=== PATIENT | male | born 1945 | race Caucasian/White ===

== ENCOUNTER → 2020-05-01 11:15 | Outpatient (BNVA) | payer MEDICARE, OTHER, SELFPAY | PROVIDERS: Family Provider Internal Medicine; PCP Internal Medicine; Visit Provider Internal Medicine Cardiovascular Disease | DX: I11.0 Hypertensive heart disease with heart failure (principal); I48.0 Paroxysmal atrial fibrillation; I50.33 Acute on chronic diastolic (congestive) heart failure; Z95.2 Presence of prosthetic heart valve; Z95.0 Presence of cardiac pacemaker; I42.0 Dilated cardiomyopathy; I72.2 Aneurysm of renal artery | CPT/HCPCS: 80048; 83880; 84443 ==

== ENCOUNTER → 2020-05-05 13:30 | Outpatient (BNVA) | payer MEDICARE, OTHER, SELFPAY | PROVIDERS: Family Provider Internal Medicine; PCP Internal Medicine; Visit Provider Internal Medicine Cardiovascular Disease | DX: I48.0 Paroxysmal atrial fibrillation (principal); R06.02 Shortness of breath; I11.0 Hypertensive heart disease with heart failure; I50.43 Acute on chronic combined systolic (congestive) and diastolic (congestive) heart failure; Z95.2 Presence of prosthetic heart valve; Z95.0 Presence of cardiac pacemaker; I42.0 Dilated cardiomyopathy; I72.2 Aneurysm of renal artery | CPT/HCPCS: 80048; 83880 ==

== ENCOUNTER 2020-06-16 12:34 | Outpatient (CLI) | payer OTHER, MEDICARE, SELFPAY ==
[2020-06-16 13:37] LABS: Anion Gap 14.1 (5-19); Blood Urea Nitrogen 13 mg/dL (8-23); Calcium 8.9 mg/dL (8.5-10.5); Carbon Dioxide 25 mmol/L (22-29); Chloride 104 mmol/L (98-107); Glucose 120 mg/dL (65-115); NT Pro B Type Natriuretic Pept 2310 pg/mL (0-450); Osmolality Calculated 283 mOsm/kg (285-295); Potassium 5.1 mmol/L (3.5-5.1); Sodium 138 mmol/L (136-145)
== END 2020-06-16 12:35 | disposition home or self-care (01) ==
PROVIDERS: PCP Internal Medicine; Visit Provider Internal Medicine Cardiovascular Disease
DX: I11.0 Hypertensive heart disease with heart failure (principal); I50.22 Chronic systolic (congestive) heart failure; I42.0 Dilated cardiomyopathy; I48.0 Paroxysmal atrial fibrillation; I72.2 Aneurysm of renal artery; Z95.0 Presence of cardiac pacemaker; Z95.2 Presence of prosthetic heart valve
CPT/HCPCS: 80048; 83880

== ENCOUNTER 2020-09-14 10:25 | Outpatient (CLI) | payer OTHER, SELFPAY ==
--- NOTE | 2020-09-14 10:38 | CT_ITS ---
WS: [id number] CT RIGHT SHOULDER ARTHROGRAM HISTORY: M25.511 - Pain in right shoulder DLP: 1272.42 mGy-cm. All CT scans at [facility] use at least one of these dose optimization techniques: automat ed exposure control; mA and/or kV adjustment per patient size (includes targeted exams where dose is matched to clinical indication); or iterative reconstruction. COMPARISON: None available. There is good distention of the shoulder joint with contrast. Very mild hypertrophic bone and soft ti ssue changes at the AC joint. Moderate high riding humeral head. Moderate amount of contrast extends into the subacromial and subde ltoid bursa. No prior history of shoulder surgery. Contrast is noted extending obliquely along the te ndon of the supraspinatus muscle. Insertion site tear is suspected. Largest amount of fluid is along the anterior supraspinatus where there is a moderate-sized insertion site tear. Mild atrophy of the s upraspinatus muscle. Cannot confirm infraspinatus or subscapularis tendon tears. There is increase fluid along the subscap ularis recess. There is a small amount of fluid along the distal subscapularis tendon. I suspect ther e is an insertion site tear. Moderate narrowing of the glenohumeral joint. Contrast extends into the superior labrum seen on the c oronal images. CT/CT shoulder RT w con [id number] IMPRESSION: 1. Moderate-sized insertion site tear supraspinatus tendon with fluid extendin g interstitial. 2. Mild atrophy of the supraspinatus muscle. 3. Highly suspicious for insertion site tear of the subscapularis tendon witho ut atrophy. 4. High riding RIGHT humeral head. 5. Contrast extends into the subacromial and subdeltoid bursa. 6. Simple tear superior labrum.
--- NOTE | 2020-09-14 10:41 | IR_ITS ---
WS: [id number] RIGHT SHOULDER ARTHROGRAM UNDER FLUOROSCOPY. PRIOR TO CT EVALUATION. HISTORY: RIGHT SHOULDER PAIN COMPARISON: RIGHT shoulder radiograph 08/03/2019 FLUOROSCOPY TIME: .8 minutes. Procedure, risks and complications were explained to the patient. Consent has been obtained. Under fluoroscopic guidance the skin is marked over the medial superior third of the humeral head, cl eansed with ChloraPrep and anesthetized with lidocaine. 22-gauge spinal needle is inserted to the cor brad of the humeral head. Test injection with Omnipaque reveals the needle is appropriately positioned in the joint. Omnipaque 300 is injected under fluoroscopic guidance. Patient tolerated the joint dis tention well. No complications. Patient will proceed to CT evaluation. IR/IR arthrogram shoulderRT [id number] IMPRESSION: Uncomplicated RIGHT shoulder joint injection prior to CT.
[2020-09-14] MEDS: iohexol 300 mg/mL 50 mL Btl INTRA-ARTI (11:45)
== END 2020-09-14 10:26 | disposition home or self-care (01) ==
PROVIDERS: PCP Internal Medicine; Visit Provider Orthopaedic Surgery
DX: M75.101 Unspecified rotator cuff tear or rupture of right shoulder, not specified as traumatic (principal); M62.511 Muscle wasting and atrophy, not elsewhere classified, right shoulder; S43.431A Superior glenoid labrum lesion of right shoulder, initial encounter; X58.XXXA Exposure to other specified factors, initial encounter
CPT/HCPCS: 23350; 73201; 77002

== ENCOUNTER 2020-10-29 12:31 | Outpatient (CLI) | payer OTHER, SELFPAY ==
--- NOTE | 2020-10-29 12:45 | USCV_ITS ---
Eric Miramontes Age: 74 Gender: M : 1945 Exam Date: 10/29/2020 12:55 Ordering Phys: Jonelle Holbrook MD ([email or web address]) Technologist: Hillary Jones Exam Location: [facility] [place] Indication: CHF BP: / HR: 60 Rhythm: Other Technical Quality: Fair MEASUREMENTS (Male / Female) Normal Values 2D ECHO LV Diastolic Diameter PLAX 5.7 cm 4.2 - 5.9 / 3.9 - 5.3 cm LV Systolic Diameter PLAX 4.9 cm LV Chamber Size 6.1 cm IVS Diastolic Thickness 1.1 cm 0.6 - 1.0 / 0.6 - 0.9 cm IVS Systolic Thickness 1.4 cm LVPW Diastolic Thickness 1.2 cm 0.6 - 1.0 / 0.6 - 0.9 cm LVPW Systolic Thickness 1.4 cm RV Chamber Size 4.0 cm LVOT Diameter 2.0 cm LV Ejection Fraction 2D Teich 28.0 % LA Diameter 4.7 cm LA Width 5.9 cm LA Height 7.0 cm RA Width 4.7 cm RA Height 7.5 cm M-MODE LV Diastolic Diameter MM 6.0 cm 4.2 - 5.9 / 3.9 - 5.3 cm LV Systolic Diameter MM 5.0 cm LV Ejection Fraction MM Teich 35.7 % IVS Diastolic Thickness MM 0.9 cm 0.6 - 1.0 / 0.6 - 0.9 cm IVS Systolic Thickness MM 0.9 cm LVPW Diastolic Thickness MM 0.9 cm 0.6 - 1.0 / 0.6 - 0.9 cm LVPW Systolic Thickness MM 1.6 cm Aortic Annulus Diameter 4.5 cm LA Ao Ratio MM 1.0 MV E Point Septal Separation 1.4 cm DOPPLER AV Peak Velocity 194.0 cm/s LVOT Peak Velocity 62.0 cm/s AV Area Cont Eq vti 1.0 cm squared AV Area Cont Eq pk 1.0 cm squared MV E' Velocity 11.0 cm/s TR Peak Velocity 238.7 cm/s TR Peak Gradient 22.8 mmHg TR Mean Velocity 157.7 cm/s TR Mean Gradient 11.3 mmHg TR Velocity Time Integral 52.6 cm Right Atrial Pressure 3.0 mmHg Pulmonary Artery Systolic Pressu 25.8 mmHg FINDINGS Left Ventricle Mildly dilated left ventricular cavity with diminished ejection fraction of 36%. Diffuse hypokinesis of the septum and anteroseptal segments. Severe hypokinesia of the basal inferior wall segment. Somewhat dyskinetic apical septal segment Right Ventricle Normal LV size ejection fraction Right Atrium Moderately increased right atrial size. Pacemaker wire in the right atrium right ventricle Left Atrium Moderately increased left atrial size. Mitral Valve Possible mitral annular ring .moderately thickened mitral valve. Two reregurgitant jets in the mitral valve with a mild to moderate mitral regurgitation Aortic Valve Bioprosthetic valve the aortic position appears to be well seated. Trace of aortic regurgitation Tricuspid Valve Moderate tricuspid valve regurgitation. Estimated pulmonary artery pressure is 26 mmHg normal pulmonary artery peak systolic pressure. Pulmonic Valve No gross abnormalities noted.mild pulmonary valve regurgitation. Pericardium No pericardial effusion. Aorta Normal aortic annulus size. CONCLUSIONS Mildly dilated left ventricular cavity with diminished ejection fraction of 36%. Multiple wall motion abnormalities as mentioned above. Moderate biatrial enlargement Mild to moderate mitral regurgitation with two regurgitant jets. Bioprosthetic valve the aortic position appears to be well seated. Trace of aortic regurgitation. Peak velocity the aortic valve was 1.946 m/s Moderate tricuspid valve regurgitation. Normal pulmonary artery peak systolic pressure There is no pericardial effusion. Compared to the study from 12/25/2017, there may not be a significant change Dr Jonelle Holbrook MD [facility] (Electronically Signed) Final Date: 29 October 2020 19:29 S
== END 2020-10-29 12:32 | disposition home or self-care (01) ==
LOC: RAD 12:33
PROVIDERS: PCP Internal Medicine; Visit Provider Internal Medicine Cardiovascular Disease
DX: I50.22 Chronic systolic (congestive) heart failure (principal); I08.3 Combined rheumatic disorders of mitral, aortic and tricuspid valves; Z95.2 Presence of prosthetic heart valve
CPT/HCPCS: 93306

== ENCOUNTER → 2020-11-07 11:55 | Outpatient (BNVA) | payer MEDICARE, SELFPAY | PROVIDERS: PCP Family Medicine; Visit Provider Internal Medicine Cardiovascular Disease | DX: I48.0 Paroxysmal atrial fibrillation (principal); R06.02 Shortness of breath; I50.33 Acute on chronic diastolic (congestive) heart failure; I50.22 Chronic systolic (congestive) heart failure | CPT/HCPCS: 80048; 83880 ==

== ENCOUNTER → 2021-09-02 12:13 | Outpatient (BNVA) | payer OTHER, SELFPAY | PROVIDERS: PCP Family Medicine; Visit Provider Internal Medicine Cardiovascular Disease | DX: I11.0 Hypertensive heart disease with heart failure (principal); I50.33 Acute on chronic diastolic (congestive) heart failure; R06.02 Shortness of breath; I50.22 Chronic systolic (congestive) heart failure; I48.0 Paroxysmal atrial fibrillation; Z95.2 Presence of prosthetic heart valve; Z95.0 Presence of cardiac pacemaker; Z87.891 Personal history of nicotine dependence; Z13.228 Encounter for screening for other metabolic disorders | CPT/HCPCS: 80048; 83880 ==

== ENCOUNTER → 2022-01-31 10:52 | Outpatient (BNVA) | payer OTHER, SELFPAY | PROVIDERS: PCP Family Medicine; Visit Provider Internal Medicine Cardiovascular Disease | DX: Z45.010 Encounter for checking and testing of cardiac pacemaker pulse generator [battery] (principal) | CPT/HCPCS: 93279 ==

== ENCOUNTER → 2022-03-05 10:56 | Outpatient (BNVA) | payer OTHER, SELFPAY | PROVIDERS: PCP Family Medicine; Visit Provider Internal Medicine Cardiovascular Disease | DX: I11.0 Hypertensive heart disease with heart failure (principal); I50.22 Chronic systolic (congestive) heart failure; I42.0 Dilated cardiomyopathy; I48.0 Paroxysmal atrial fibrillation; Z95.0 Presence of cardiac pacemaker; Z95.2 Presence of prosthetic heart valve | CPT/HCPCS: 80048; 83880; 99214 ==

== ENCOUNTER 2022-03-31 09:57 | Outpatient (CLI) | payer OTHER, SELFPAY ==
[2022-03-31 11:02] LABS: Blood Urea Nitrogen 17 mg/dL (8-23); Calcium 9.2 mg/dL (8.5-10.5); Carbon Dioxide 22 mmol/L (22-29); Chloride 103 mmol/L (98-107); Glucose 113 mg/dL (65-115); NT Pro B Type Natriuretic Pept 1945 pg/mL (0-450); Osmolality Calculated 286 mOsm/kg (285-295); Sodium 137 mmol/L (136-145)
[2022-03-31 11:07] LABS: Anion Gap 16.4 (5-19); Potassium 4.4 mmol/L (3.5-5.1)
== END 2022-03-31 09:58 | disposition home or self-care (01) ==
PROVIDERS: PCP Family Medicine; Visit Provider Internal Medicine Cardiovascular Disease
DX: I50.22 Chronic systolic (congestive) heart failure (principal); I42.0 Dilated cardiomyopathy
CPT/HCPCS: 80048; 83880

== ENCOUNTER 2022-04-28 09:10 | Outpatient (CLI) | payer OTHER, SELFPAY ==
--- NOTE | 2022-04-28 09:30 | USCV_ITS ---
Miramontes Eric Sanchez Age: 76 Gender: M : 1945 Exam Date: 04/28/2022 10:06 Ordering Phys: Jonelle Holbrook MD ([email or web address]) Technologist: Lorrie Gordon [place]am [place] [facility] [place] Indication: AOV replacement BP: 120 / 85 HR: 88 Rhythm: Sinus Technical Quality: Adequate MEASUREMENTS (Male / Female) Normal Values 2D ECHO LV Diastolic Diameter PLAX 5.3 cm 4.2 - 5.9 / 3.9 - 5.3 cm LV Systolic Diameter PLAX 2.7 cm IVS Diastolic Thickness 1.1 cm 0.6 - 1.0 / 0.6 - 0.9 cm IVS Systolic Thickness 1.8 cm LVPW Diastolic Thickness 1.0 cm 0.6 - 1.0 / 0.6 - 0.9 cm LVPW Systolic Thickness 2.1 cm LVOT Diameter 2.0 cm LV Ejection Fraction 2D Teich 80.8 % LV Ejection Fraction MOD 2C 64.1 % LV Ejection Fraction 2C AL 66.0 % LA Diameter 5.1 cm LA Width 5.1 cm LA Height 7.3 cm RA Width 5.1 cm RA Height 7.8 cm IVC Diameter 2.1 cm DOPPLER AV Peak Velocity 193.3 cm/s LVOT Peak Velocity 63.0 cm/s AV Area Cont Eq vti 1.0 cm squared AV Area Cont Eq pk 1.1 cm squared MV Peak Velocity 141.0 cm/s MV Area PHT 3.5 cm squared Mitral E to A Ratio 5.9 MV E' Velocity 65.5 cm/s Mitral E to MV E' Ratio 17.2 Mitral E to LV E' Lateral Ratio 13.9 Mitral E to LV E' Septal Ratio 23.0 TR Peak Velocity 187.5 cm/s TR Peak Gradient 14.1 mmHg Right Atrial Pressure 3.0 mmHg Pulmonary Artery Systolic Pressu 17.1 mmHg PV Peak Velocity 74.0 cm/s RV Acceleration Time 0.1 s FINDINGS Left Ventricle Normal left ventricular size with diminished ejection fraction of around 40%. Diffuse hypokinesis of left ventricle. Echodensity in the LV apex, may suggest organized LV apical thrombus Right Ventricle Catheter/pacemaker wire in the right ventricular cavity. Right Atrium Moderately increased right atrial size. Catheter/pacemaker wire in the right atrial appendage. Left Atrium Moderately increased left atrial size. Mitral Valve Possible mitral annular ring Aortic Valve Prosthetic valve at the the aortic position appears to be well- seated. Peak velocity the aortic valve was 1.97 m/s with a peak gradient of 16 and a mean gradient of 7 mmHg. Tricuspid Valve Mild to moderate TR (tricuspid valve regurgitation). Pulmonic Valve Pulmonic valve not well visualized. Pericardium No pericardial effusion. Aorta Normal aortic annulus size. IVC Normal inferior vena cava. CONCLUSIONS Normal left ventricular size with d normal iminished ejection fraction of around 40%. Diffuse hypokinesis of left ventricle. Echodensity in the LV apex, may suggest organized LV apical thrombus. Moderate biatrial enlargement. Normal RV size and ejection fraction. Pacemaker wire in the right atrium and right ventricle. Prosthetic valve at the the aortic position appears to be well- seated. Peak velocity the aortic valve was 1.97 m/s with a peak gradient of 16 and a mean gradient of 7 mmHg. Mild to moderate TR (tricuspid valve regurgitation). Estimated pulmonary artery peak systolic pressure was 17 mmHg. There is no pericardial effusion. There are no intracardiac masses. Compared to the study from 04/28/2021, there may not be a significant change Dr Jonelle Holbrook MD [facility] (Electronically Signed) Final Date: 30 April 2022 08:59 S
== END 2022-04-28 09:11 | disposition home or self-care (01) ==
LOC: RAD 09:11
PROVIDERS: PCP Family Medicine; Visit Provider Internal Medicine Cardiovascular Disease
DX: I42.0 Dilated cardiomyopathy (principal); R06.00 Dyspnea, unspecified
CPT/HCPCS: 93306

== ENCOUNTER → 2022-05-19 10:03 | Outpatient (BNVA) | payer OTHER, SELFPAY | PROVIDERS: PCP Family Medicine; Visit Provider Surgery | DX: K40.20 Bilateral inguinal hernia, without obstruction or gangrene, not specified as recurrent (principal); K46.9 Unspecified abdominal hernia without obstruction or gangrene; Z79.01 Long term (current) use of anticoagulants | CPT/HCPCS: 99204 ==

== ENCOUNTER 2022-05-26 07:09 | Day surgery (SDC) | payer OTHER, SELFPAY ==
[2022-05-23 10:45] VITALS: BMI 31.0
[2022-05-26] VITALS (12 sets, daily range): BP systolic 98–135; BP diastolic 62–88; PULSE 67–100; RESP 13–20; TEMP 36.1–36.6; O2SAT 93–100
--- NOTE | 2022-05-26 08:14 | P.ANESASSM_ITS ---
Pre-Anesthetic Assessment Height/Weight: Height 1.7 m Weight 89.811 kg Preop Diagnosis: inguinal hernia Operation Date: 05/26/22 09:00 Proposed Procedures p lap poss open bilateral inguinal hernia 37764 2x,K46.9(Bilateral) - Jin Vicente MD Familial anesthetic complications: None Was Beta Magalis taken within 24 hours: Yes Was Clonidine taken within 24 hours: N/A Last intake: > 8 hrs Social No alcohol and No tobacco Exam alert, oriented x 3, clear to auscultation bilaterally and regular rate & rhythm Airway Mallampati: Class III Dentition: full Pulmonary None reported CV/HEM Atrial Fibrillation and Congestive Heart Failure (EF 36% on 11/08) Aortic valve replaced, pacemaker renal artery aneurysm Anesthetic Plan ASA status: 4 Anesthesia: General Risk of > 500 ml blood loss (7ml/kg in children): No Medications/Allergies Home Medications Medication Instructions Recorded Confirmed Last Taken Type albuterol sulfate 90 mcg/actuation 1 inh inhalation QID 01/25/20 05/26/22 05/25/22 History aerosol inhaler (Ventolin HFA) brimonidine 0.1 % eye drops 1 drop ophthalmic (eye) TID 01/25/20 05/26/22 05/26/22 History (Alphagan P) chlorpheniramine maleate 4 mg 4 mg PO DAILY PRN allergies 01/25/20 05/26/22 05/26/22 History tablet cholecalciferol (vitamin D3) 50 1,000 unit PO DAILY 01/25/20 05/26/22 05/26/22 History mcg (2,000 unit) tablet dorzolamide (PF) 2 % (PF) eye drops 1 drop ophthalmic (eye) TID 01/25/20 05/26/22 05/26/22 History finasteride 5 mg tablet 5 mg PO DAILY 01/25/20 05/26/22 05/26/22 History fluticasone 250 mcg-salmeterol 50 1 inh inhalation BID 01/25/20 05/26/22 05/25/22 History mcg/dose blistr powdr for inhalation (Advair Diskus) ketorolac 0.4 % eye drops 1 drop ophthalmic (eye) Q6H 01/25/20 05/26/22 05/26/22 History latanoprost 0.005 % eye drops 1 drop ophthalmic (eye) DAILY 01/25/20 05/26/22 05/26/22 History spironolactone 25 mg tablet 25 mg PO DAILY 01/25/20 05/26/22 05/26/22 History timolol 0.5 % eye drops 1 drop ophthalmic (eye) DAILY 01/25/20 05/26/22 05/26/22 History albuterol sulfate 2.5 mg inhalation TID PRN 09/03/21 05/26/22 05/25/22 History Shortness Of Breath carvedilol 6.25 mg tablet 6.25 mg PO BID 09/03/21 05/26/22 05/26/22 History metoprolol succinate 50 mg 50 mg PO DAILY 09/03/21 05/26/22 05/26/22 History tablet,extended release 24 hr montelukast 10 mg tablet 10 mg PO DAILY 09/03/21 05/26/22 05/26/22 History (Singulair) simvastatin 20 mg tablet 20 mg PO DAILY 09/03/21 05/26/22 Unknown History sildenafil 50 mg tablet 50 mg PO DAILY PRN Sexual Activity 09/23/21 05/26/22 1 Month Ago History ~04/25/22 furosemide 40 mg tablet 40 mg PO DAILY #90 tabs 03/05/22 05/26/22 05/26/22 Rx sacubitril 97 mg-valsartan 103 mg 1 tab PO BID 90 days #180 tabs 03/10/22 05/26/22 05/26/22 Rx tablet (Entresto) enoxaparin 300 mg/3 mL 100 mg SUBCUT BID 3 days #6 mL 05/19/22 05/26/22 05/25/22 Rx subcutaneous solution (Lovenox) metronidazole 0.75 % lotion 1 applic topical TID 05/19/22 05/26/22 05/25/22 History prednisolone acetate 1 % eye 1 drp ophthalmic (eye) QID 05/19/22 05/26/22 05/26/22 History drops,suspension warfarin 5 mg tablet 5 mg PO .one-half 05/19/22 05/26/22 05/22/22 History Allergies Allergy/AdvReac Type Severity Reaction Status Date / Time tamsulosin [From Flomax] Allergy Unknown unknown Verified 05/26/22 07:40 terazosin Allergy Unknown unknown Verified 05/26/22 07:40 [facility] Anesthesia Medical History Atrial fibrillation Cardiomyopathy Chronic systolic heart failure Glaucoma Hypertension Pacemaker Renal artery aneurysm Surgical History Aortic valve replaced History of appendectomy History of eye surgery History of tonsillectomy Hx of cataract surgery Family History Grandfather CAD (coronary artery disease) Family/Other CAD (coronary artery disease) Denies family history of Diabetes Clotting disorder Dementia Chronic kidney disease (CKD) Suicide Anesthesia complication Bleeding disorder Lung disease Cancer Stroke Social History Smoking and tobacco status: former smoker Alcohol intake: current Alcohol intake frequency: holidays/special occasions only Data Anesthesia Cardiac Studies: Echocardiogram 04/28/22 Echocardiogram Ultrasound 10/29/20
[2022-05-26] MEDS: sodium chloride 0.9% 1,000 ML 30 ML IV (08:27)
[2022-05-26] MEDS: midazolam 1 mg/mL INJ 2 mL 2 MG IVP (08:27)
--- NOTE | 2022-05-26 08:34 | W.PM.OPSFHP ---
Same Day Surgery H&P Indication for Procedure/HPI DATE OF PROCEDURE: May 26, 2022 CHIEF COMPLAINT/INDICATIONFOR SURGICAL PROCEDURE: Bilateral inguinal hernia repair PREOP DIAGNOSIS: inguinal hernia PLANNED PROCEDURE: Operation Date: 05/26/22 09:00 Proposed Procedures p lap poss open bilateral inguinal hernia 88843 2x,K46.9(Bilateral) - Jin Vicente MD Medications/Allergies* Home Medications Medication Instructions Recorded Confirmed Type albuterol sulfate 90 mcg/actuation 1 inh inhalation QID 01/25/20 05/26/22 History aerosol inhaler (Ventolin HFA) brimonidine 0.1 % eye drops 1 drop ophthalmic (eye) TID 01/25/20 05/26/22 History (Alphagan P) chlorpheniramine maleate 4 mg 4 mg PO DAILY PRN allergies 01/25/20 05/26/22 History tablet cholecalciferol (vitamin D3) 50 1,000 unit PO DAILY 01/25/20 05/26/22 History mcg (2,000 unit) tablet dorzolamide (PF) 2 % (PF) eye drops 1 drop ophthalmic (eye) TID 01/25/20 05/26/22 History finasteride 5 mg tablet 5 mg PO DAILY 01/25/20 05/26/22 History fluticasone 250 mcg-salmeterol 50 1 inh inhalation BID 01/25/20 05/26/22 History mcg/dose blistr powdr for inhalation (Advair Diskus) ketorolac 0.4 % eye drops 1 drop ophthalmic (eye) Q6H 01/25/20 05/26/22 History latanoprost 0.005 % eye drops 1 drop ophthalmic (eye) DAILY 01/25/20 05/26/22 History spironolactone 25 mg tablet 25 mg PO DAILY 01/25/20 05/26/22 History timolol 0.5 % eye drops 1 drop ophthalmic (eye) DAILY 01/25/20 05/26/22 History albuterol sulfate 2.5 mg inhalation TID PRN 09/03/21 05/26/22 History Shortness Of Breath carvedilol 6.25 mg tablet 6.25 mg PO BID 09/03/21 05/26/22 History metoprolol succinate 50 mg 50 mg PO DAILY 09/03/21 05/26/22 History tablet,extended release 24 hr montelukast 10 mg tablet 10 mg PO DAILY 09/03/21 05/26/22 History (Singulair) simvastatin 20 mg tablet 20 mg PO DAILY 09/03/21 05/26/22 History sildenafil 50 mg tablet 50 mg PO DAILY PRN Sexual Activity 09/23/21 05/26/22 History metronidazole 0.75 % lotion 1 applic topical TID 05/19/22 05/26/22 History prednisolone acetate 1 % eye 1 drp ophthalmic (eye) QID 05/19/22 05/26/22 History drops,suspension warfarin 5 mg tablet 5 mg PO .one-half 05/19/22 05/26/22 History Allergies/Adverse Reactions Allergy/AdvReac Type Severity Reaction Status Date / Time tamsulosin [From Flomax] Allergy Unknown unknown Verified 05/26/22 07:40 terazosin Allergy Unknown unknown Verified 05/26/22 07:40 Current Medications: Generic Name Dose Route Start Last Admin Trade Name Freq PRN Reason Stop Dose Admin Sodium Chloride 1,000 mls @ 30 mls/hr 05/26/22 07:30 05/26/22 08:27 Sodium Chloride 0.9% IV 05/27/22 07:29 30 mls/hr .Q24H ROMEO Administration Midazolam HCl 2 mg 05/26/22 07:19 05/26/22 08:27 Midazolam 1 Mg/Ml Inj 2 Ml IVP 2 mg Q5M PRN Administration Preop Anxiety Pertinent History/Comorbid Conditions* Medical History (Updated 05/01/20 @ 12:22 by Jonelle Holbrook MD) Atrial fibrillation Cardiomyopathy Chronic systolic heart failure Glaucoma Hypertension Pacemaker Renal artery aneurysm Surgical History (Updated 01/25/20 @ 14:01 by Jonelle Holbrook MD) Aortic valve replaced History of appendectomy History of eye surgery History of tonsillectomy Hx of cataract surgery Family History (Updated 11/07/20 @ 11:12 by Elke Betancourt RN) CAD (coronary artery disease) Grandfather Family/Other Denies family history of Diabetes Clotting disorder Dementia Chronic kidney disease (CKD) Suicide Anesthesia complication Bleeding disorder Lung disease Cancer Stroke Social History Smoking and tobacco status: former smoker Alcohol intake: current Alcohol intake frequency: holidays/special occasions only Pertinent Exam Findings alert, oriented x 3 and operative site marked Recommendations Surgery/Procedure today Coding Level of Care Code Acute 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
[2022-05-26 08:47] LABS: INR 1.08 (0.8-1.2)
[2022-05-26] MEDS: ceFAZolin 2,000 MG in sodium chloride 0.9% (plus) 50 ML 100 MG IV (11:06)
--- NOTE | 2022-05-26 12:44 | PM.OP ---
Operative Report Date of procedure: May 26, 2022 Pre-op diagnosis: Symptomatic bilateral inguinal hernia, reducible, left larger than right Post-op diagnosis: Bilateral indirect inguinal hernia, reducible, left larger than right Procedure done: Laparoscopic total extraperitoneal repair of indirect bilateral inguinal hernia with Surgimax 16 x 10cm mesh Pathology: none sent Surgeon: Jin Vicente Anesthesia: General Condition: stable Disposition: PACU Procedure: The patient was taken to the operating room and intubated under general anesthesia. After IV antibiotic was administered, the abdomen was prepped and draped in a sterile manner. Using a 15 blade, a 1.0 cm transverse incision was made infraumbilically on the left side. Subcutaneous tissue was divided using electrocautery and the anterior rectus sheath divided using an 11 blade. The rectus muscle was retracted laterally and the extraperitoneal space identified. The retrorectus space was opened using a balloon dilator. A 11 mm port was placed and 15 mm of pneumoperitoneum was created. A 10 mm 30? scope was introduced and 5 mm ports were placed in the midline, one 2-fingerbreadths above the pubic symphysis and the other midway between these two ports under direct visualization.The pubic symphysis, which was identified. The dissection was then carried laterally on the left side where the iliopubic tract was identified. There was no femoral, obturator or direct hernia noted. The inferior epigastric artery was identified and dissection was carried posterior to it and laterally, the space was opened up to the level of the umbilicus superior to the anterior superior iliac spine. I then proceeded to dissect out the spermatic cord and the large indirect hernial sac was reduced . The dissection was then carried laterally on the right side where the iliopubic tract was identified. There was no femoral, obturator or direct hernia noted. The inferior epigastric artery was identified and dissection was carried posterior to it and laterally, the space was opened up to the level of the umbilicus superior to the anterior superior iliac spine. I then proceeded to dissect out the spermatic cord and the indirect hernial sac was reduced . There was pneumoperitoneum from potential opening in the hernia sac and therefore a varies needle was placed in the right upper quadrant with release of pneumoperitoneum 16 x 10cm Surgimax 3D mesh was rolled and introduced through the 10 mm port and then rolled laterally and apposed well against the abdominal wall to cover the myopectineal orifice completely on the left side and secured with Securestraps. It was similarly repeated on the right side. 10 Cc of 0.25% Marcaine was infiltrated into the preperitoneal space. The extraperitoneal space was desufflated under direct visualization to ensure no slippage of hernial sac under the mesh. All ports were removed, the anterior rectus fascia at the infraumbilical port closed using figure of eight 0 Vicryl sutures, subcutaneous tissue approximated using 3-0 Vicryl sutures and skin at all three port sites were closed using running subcuticular 4-0 Monocryl sutures and Dermabond. 10 mL of 0.25% Marcaine was infiltrated at the port sites. The patient was stable throughout the procedure. The urinary bladder was noted to be distended during surgery and therefore the bladder was decompressed using a red rubber catheter at the end of the surgery. The patient was extubated and transferred to recovery room in stable condition.
--- NOTE | 2022-05-26 13:46 | ANE.PACU2 ---
Inpatient post-anesthesia follow up: Airway intact: Yes Vital signs: Temperature 97.2 F Pulse Rate 80 Respiratory Rate 16 Blood Pressure 117/88 Pulse Oximetry 96 Oxygen Delivery Me thod Room Air Oxygen Flow Rate 3 Fraction of Inspir ed Oxygen Hydration adequate: Yes Nausea and vomiting: No Pain level: 2 Mental status: Baseline
[2022-05-26] MEDS: HYDROcodone-acetaminophen 5-325 mg Tablet 1 TAB PO (13:59)
== END 2022-05-26 14:10 | disposition home or self-care (01) ==
PROVIDERS: PCP Family Medicine; Visit Provider Surgery
PROC: (CPT 49650; principal; 2022-05-26 09:00)
DX: K40.20 Bilateral inguinal hernia, without obstruction or gangrene, not specified as recurrent (principal); I48.91 Unspecified atrial fibrillation; Z79.01 Long term (current) use of anticoagulants; I11.0 Hypertensive heart disease with heart failure; I50.22 Chronic systolic (congestive) heart failure; Z95.0 Presence of cardiac pacemaker; Z87.891 Personal history of nicotine dependence
CPT/HCPCS: 49650; 36415; 51702; 85610; C1781; J1100; J2250; J2370; J2405; J2704; J2710; J3010; J3490; J7030

== ENCOUNTER → 2022-06-09 10:28 | Outpatient (BNVA) | payer OTHER, SELFPAY | PROVIDERS: PCP Family Medicine; Visit Provider Surgery | DX: Z98.890 Other specified postprocedural states (principal); Z87.19 Personal history of other diseases of the digestive system | CPT/HCPCS: 99024 ==

== ENCOUNTER → 2022-06-20 10:53 | Outpatient (BNVA) | payer OTHER, SELFPAY | PROVIDERS: PCP Family Medicine; Visit Provider Internal Medicine Cardiovascular Disease | DX: Z45.010 Encounter for checking and testing of cardiac pacemaker pulse generator [battery] (principal) | CPT/HCPCS: 93279 ==

== ENCOUNTER 2022-08-04 | Outpatient (CLI) | payer OTHER, SELFPAY | END 2022-08-04 00:01 | disposition home or self-care (01) | LOC: RAD 08-11 09:06 | PROVIDERS: PCP Family Medicine; Visit Provider Family Medicine | DX: M81.0 Age-related osteoporosis without current pathological fracture (principal); R25.2 Cramp and spasm | CPT/HCPCS: 99204 ==

== ENCOUNTER → 2022-09-19 11:18 | Outpatient (BNVA) | payer OTHER, SELFPAY | PROVIDERS: PCP Family Medicine; Visit Provider Nurse Practitioner Family | DX: I11.0 Hypertensive heart disease with heart failure (principal); I50.22 Chronic systolic (congestive) heart failure; I48.0 Paroxysmal atrial fibrillation; Z79.01 Long term (current) use of anticoagulants; Z95.0 Presence of cardiac pacemaker | CPT/HCPCS: 93279; 99214 ==

== ENCOUNTER → 2022-10-30 10:17 | Outpatient (BNVA) | payer OTHER, SELFPAY | PROVIDERS: PCP Family Medicine; Visit Provider Internal Medicine Cardiovascular Disease | DX: I48.0 Paroxysmal atrial fibrillation (principal); Z79.01 Long term (current) use of anticoagulants; I42.0 Dilated cardiomyopathy; Z95.0 Presence of cardiac pacemaker; Z95.2 Presence of prosthetic heart valve; I72.2 Aneurysm of renal artery; I11.0 Hypertensive heart disease with heart failure; I50.22 Chronic systolic (congestive) heart failure | CPT/HCPCS: 99214 ==

== ENCOUNTER → 2022-12-10 13:25 | Outpatient (BNVA) | payer OTHER, SELFPAY | PROVIDERS: PCP Family Medicine; Visit Provider Internal Medicine Cardiovascular Disease | DX: I48.0 Paroxysmal atrial fibrillation (principal); I11.0 Hypertensive heart disease with heart failure; I50.22 Chronic systolic (congestive) heart failure; Z95.2 Presence of prosthetic heart valve; I42.0 Dilated cardiomyopathy; Z95.0 Presence of cardiac pacemaker; Z79.01 Long term (current) use of anticoagulants | CPT/HCPCS: 99214 ==

== ENCOUNTER 2022-12-17 06:43 | Outpatient (CLI) | payer OTHER, SELFPAY ==
[2022-12-17 07:56] LABS: Basophils % 0.4 %; Eosinophils # 0.1 10^3/uL (0.0-0.8); Eosinophils % 1.5 %; Hematocrit 35.3 % (42.0-52.0); Hemoglobin 11.6 g/dL (11.7-16.6); Lymphocytes # 1.4 10^3/uL (0.8-4.8); Lymphocytes % 18.2 %; Mean Corpuscular HGB Conc 32.9 g/dL (30.0-36.0); Mean Corpuscular Volume 103.5 fl (80-94); Mean Platelet Volume 9.7 fL (7.4-10.4); Monocytes # 0.8 10^3/uL (0.2-0.9); Monocytes % 10.3 %; Neutrophils # 5.12 10^3/uL (1.8-7.7); Neutrophils % 69.2 %; Nucleated Red Blood Cells % 0 %; Platelet Count 127 10^3/cmm (130-400); Red Blood Count 3.41 10^6/uL (4.1-5.3); Red Cell Distribution Width 13.3 % (12.1-15.1); White Blood Count 7.4 10^3/uL (4.0-10.0)
[2022-12-17 08:07] LABS: INR 1.24 (0.8-1.2)
[2022-12-17 08:13] LABS: Anion Gap 15.2 (5-19); Blood Urea Nitrogen 20 mg/dL (8-23); Calcium 9.2 mg/dL (8.5-10.5); Carbon Dioxide 23 mmol/L (22-29); Chloride 101 mmol/L (98-107); Glucose 118 mg/dL (65-115); Osmolality Calculated 284 mOsm/kg (285-295); Potassium 4.2 mmol/L (3.5-5.1); Sodium 135 mmol/L (136-145)
--- NOTE | 2022-12-17 08:19 | W.PM.OPSUD ---
Surgery/Procedure H&P Update DATE OF PROCEDURE: December 17, 2022 DATE H&P PERFORMED: 01/07/23 H&P UPDATE INFORMATION: I have reviewed H&P completed within last 30 days, I have examined patient prior to procedure and No changes to prior documentation PREOP DIAGNOSIS: MORAIMA PRIMARY INDICATION FOR PROCEDURE: Chrnic AFIB/ symptomatic bradycardia/ Pacemaker MORAIMA PLANNED PROCEDURE: Operation Date: 12/17/22 08:30 [place] [id number],Z45.010(Not Applicable) - Jonelle Holbrook MD PATIENT REASSESSED PRIOR TO SEDATION, WITH NO CHANGE NOTED: Yes PHYSICAL EXAM: alert, oriented x 3 and clear to auscultation bilaterally AIRWAY EVAL/ANESTHESIA PLAN: normal airway, see other exam findings, ASA III, Monitored Anesthesia, Local Anesthesia, Risks, benefits & alternatives of sedation and/or procedure discussed and Patient agrees to continue as planned
[2022-12-17 08:29] VITALS: BP 109/72; PULSE 72; RESP 16; TEMP 36.6; O2SAT 98; BMI 31.8
[2022-12-17 09:15] VITALS: BP 117/80; PULSE 65; RESP 12; O2SAT 97
--- NOTE | 2022-12-17 09:24 | SUR.PHASEII ---
Received the patient back from the labor relations consultant via wheelchair s/p an aborted pacemaker revision. patient ambulated to the bed easily. manager monitoring placed and vital signs obtained. patient will DC home in an hour.
--- NOTE | 2022-12-17 09:38 | PM.OP ---
Operative Report Date of procedure: December 17, 2022 Pre-op diagnosis: Preop Diagnosis MORAIMA Procedure: This patient was brought to the cardiac catheterization lab for the elective pacemaker revision. The pacemaker was interrogated prior to the revision. Apparently the patient was found to have intermittent high thresholds in the lead. Patient has a [employer] lead which was implanted in 2009. Because of the changing lead thresholds, patient requires a threshold testing after disconnecting the generator. There is a possibility that he may require a new lead. I discussed this with the patient and his . If he needs a new lead, that needs to be done with the surgical backup. Apparently Dr. Quigley is at the wound clinic today. So it was decided to postpone this procedure for a later date. The patient and his understood this well. I contacted Dr. Quigley and discussed the situation. Dr. Quigley's office is going to arrange for possible lead and pacemaker revision as early as possible.
[2022-12-17 09:45] VITALS: BP 109/65; PULSE 64; RESP 12; O2SAT 97
[2022-12-17 10:15] VITALS: BP 104/62; PULSE 62; RESP 14; O2SAT 97
--- NOTE | 2022-12-17 10:49 | SUR.PHASEII ---
Patient discharged home via wheelchair with spouse and all belongings.
== END 2022-12-17 06:44 | disposition home or self-care (01) ==
PROVIDERS: PCP Family Medicine; Visit Provider Internal Medicine Cardiovascular Disease
DX: Z45.010 Encounter for checking and testing of cardiac pacemaker pulse generator [battery] (principal); Z53.8 Procedure and treatment not carried out for other reasons; I48.91 Unspecified atrial fibrillation; I11.0 Hypertensive heart disease with heart failure; I50.22 Chronic systolic (congestive) heart failure; Z79.01 Long term (current) use of anticoagulants; I42.0 Dilated cardiomyopathy
CPT/HCPCS: 36415; 80048; 85025; 85610; 99152; 99153; C1769; J0690; J2250; J3010; J3370; J7030; J7050

== ENCOUNTER 2022-12-23 09:37 | Observation (INO) | payer OTHER, SELFPAY ==
[2022-12-22 08:28] VITALS: BMI 30.4
[2022-12-23] VITALS (22 sets, daily range): BP systolic 114–140; BP diastolic 68–87; PULSE 64–71; RESP 14–19; TEMP 36.1–36.8; O2SAT 95–100
--- NOTE | 2022-12-23 05:43 | SC_ITS ---
WS: [id number] INTRAOPERATIVE TECHNIQUE: 3 Spot fluoroscopic images for intraoperative purposes. FLUOROSCOPY TIME: 170.8 seconds CLINICAL INFORMATION: pacemaker lead replacement COMPARISON: None. FINDINGS: Cardiac pacer. Sternotomy. SC/C-arm FL for Pacemaker IMPRESSION: Images obtained for intraoperative purposes.
[2022-12-23] MEDS: sodium chloride 0.9% 1,000 ML 30 ML IV (06:39)
[2022-12-23 06:42] LABS: Urine Appearance Clear (CLEAR); Urine Color Yellow (Yellow); pH Urine 5 (5-7)
[2022-12-23 06:43] LABS: Add Urine Microscopic? YES; Bilirubin Urine Neg (Negative); Blood Urine 2+ (Negative); Glucose Urine UA Norm (Normal); Ketones Urine Negative (Negative); Leukocyte Esterase Urine Trace (Negative); Nitrate Urine Negative (Negative); Protein Urine Neg (Negative); Urobilinogen Urine Norm (Negative)
--- NOTE | 2022-12-23 06:44 | W.PM.OPSUD ---
Surgery/Procedure H&P Update DATE OF PROCEDURE: December 23, 2022 DATE H&P PERFORMED: 12/10/22 H&P UPDATE INFORMATION: I have reviewed H&P completed within last 30 days, I have examined patient prior to procedure and Changes to prior documentation as noted here CHANGES TO PREVIOUS DOCUMENTATION: I have been requested by Dr. Holbrook to consider pacemaker generator exchange and possible new lead placement for Mr. Miramontes. I had a lengthy conversation with . Mr. Miramontes and his . He has several complicating issues in relation to pacemaker generator replacement and possible lead replacement. He has had 2 open cardiac procedures, including mechanical aortic valve replacement and then several years later mitral valve angioplasty, both through a median sternotomy. He is also had an original pacemaker placed with subsequent generator change with his current generator at end of service and possible malfunctioning RV lead. His pacemaker, as well, is on the right side as he is left-handed. He also has been on Coumadin, though currently has been on Lovenox for the past 2 weeks. I was unaware of these particulars following my conversation with Dr. Holbrook. I discussed in general the rationale for pacemaker generator replacement and subsequent lead replacement. Medical considerations concerning difficulties advancing a new lead in position, particularly from the right side which will require traversing to right ankles, as well as previous cardiac surgery which may create further difficulties in lead advancement or securing. The potential need to attempt lead placement from the left side was also discussed, which would require subsequent placement of potentially a second lead and movement of the generator to the left side. I also frankly discussed the increased risk for bleeding, infection, and inability to adequately place the lead. The potential need to consider lead extraction at a tertiary center was also discussed. As well, I did discuss and offer consideration for primary referral to a tertiary center for this pacemaker generator and potential lead replacement, though he wishes to remain here for attempt at this procedure. He will clearly be at increased risk for potential bleeding complications which could be catastrophic, infection, as well as inability to place a new lead. He has confirmed that he has a [place] mechanical valve though he cannot produce his implant card or an implant card for his mitral valve annuloplasty ring. My exam today reveals clear lung recinos and a well-healed sternotomy incision with an easily palpable right subclavicular pacing generator. As well, surprisingly, we do not have a chest x-ray for further delineation of his current leads positions. We will examine this under fluoroscopy this morning as we initiate the procedure. All questions have been answered. He and his do wish to proceed. PREOP DIAGNOSIS: Pacemaker end of service;malfunctioning lead PLANNED PROCEDURE: Operation Date: 12/23/22 07:00 Proposed Procedures p Pacemker generatoe exchange and lead replac [id number],I48.0(Not Applicable) - Demarco Quigley MD
--- NOTE | 2022-12-23 06:46 | P.ANESASSM_ITS ---
Pre-Anesthetic Assessment Height/Weight: Height 1.7 m Weight 87.997 kg Temp Pulse Resp BP Pulse Ox O2 Del Method 97.5 F L 64 16 118/73 98 12/23/22 06:04 12/23/22 06:04 12/23/22 06:04 12/23/22 06:04 12/23/22 06:04 12/23/22 06:05 Preop Diagnosis: Pacemaker end of service;malfunctioning lead Operation Date: 12/23/22 07:00 Proposed Procedures p Pacemker generatoe exchange and lead replac [id number],I48.0(Not Applicable) - Demarco Quigley MD Familial anesthetic complications: none Was Beta Magalis taken within 24 hours: Yes Was Clonidine taken within 24 hours: N/A Last intake: Intake Last Liquid Date 12/22/22 Last Liquid Time 19:00 Last Solid Date 12/22/22 Last Solid Time 15:00 Social No alcohol and No tobacco Exam alert, oriented x 3, clear to auscultation bilaterally and regular rate & rhythm Airway Mallampati: Class III Dentition: full CV/HEM Atrial Fibrillation, Congestive Heart Failure and Hypertension Aortic Valve replacement pacemaker echocardiogram at the [facility] on 11/14/2022.? He was found to have LV ejection fraction of 42%.? Right ventricle was found to be mildly dilated with a normal ejection fraction.? Both atria were found to be mildly dilated.? Trace of aortic regurgitation.? Grade 2 left and right atrial dysfunction.? Mild tricuspid regurgitation.? PA pressure was not 26 mmHg Anesthetic Plan ASA status: 4 Anesthesia: MAC Risk of > 500 ml blood loss (7ml/kg in children): No Medications/Allergies Home Medications Medication Instructions Recorded Confirmed Last Taken Type albuterol sulfate 90 mcg/actuation 1 inh inhalation QID 01/25/20 12/22/22 12/20/22 History aerosol inhaler (Ventolin HFA) brimonidine 0.1 % eye drops 1 drop ophthalmic (eye) TID 01/25/20 12/22/22 12/22/22 History (Alphagan P) chlorpheniramine maleate 4 mg 4 mg PO DAILY PRN allergies 01/25/20 12/22/22 12/22/22 History tablet cholecalciferol (vitamin D3) 50 1,000 unit PO DAILY 01/25/20 12/22/22 12/22/22 History mcg (2,000 unit) tablet dorzolamide (PF) 2 % (PF) eye drops 1 drop ophthalmic (eye) TID 01/25/20 12/22/22 12/22/22 History finasteride 5 mg tablet 5 mg PO DAILY 01/25/20 12/22/22 12/22/22 History fluticasone 250 mcg-salmeterol 50 1 inh inhalation BID 01/25/20 12/22/22 12/20/22 History mcg/dose blistr powdr for inhalation (Advair Diskus) latanoprost 0.005 % eye drops 1 drop ophthalmic (eye) DAILY 01/25/20 12/22/22 12/21/22 History timolol 0.5 % eye drops 1 drop ophthalmic (eye) DAILY 01/25/20 12/22/22 12/21/22 History simvastatin 20 mg tablet 20 mg PO DAILY 09/03/21 12/22/22 12/16/22 History sildenafil 50 mg tablet 50 mg PO DAILY PRN Sexual Activity 09/23/21 12/22/22 12/21/22 History furosemide 40 mg tablet 40 mg PO DAILY #90 tabs 03/05/22 12/22/22 12/21/22 Rx sacubitril 97 mg-valsartan 103 mg 1 tab PO BID 90 days #180 tabs 03/10/22 12/22/22 12/21/22 Rx tablet (Entresto) carvedilol 6.25 mg tablet 6.25 mg PO BID #180 tabs 08/11/22 12/22/22 12/22/22 Rx enoxaparin 100 mg/mL subcutaneous 90 mg SUBCUT Q12H bridging for 12/12/22 12/22/22 12/21/22 History syringe (Lovenox) procedure warfarin 1 mg tablet 5 mg PO DAILY 12/17/22 12/22/22 12/11/22 History warfarin 1 mg tablet 7 mg PO DAILY 12/17/22 12/22/22 12/12/22 History Allergies Allergy/AdvReac Type Severity Reaction Status Date / Time tamsulosin [From Flomax] Allergy Unknown unknown Verified 12/22/22 07:35 terazosin Allergy Unknown unknown Verified 12/22/22 07:35 Current Medications Generic Name Dose Route Start Last Admin Trade Name Freq PRN Reason Stop Dose Admin Sodium Chloride 1,000 mls @ 30 mls/hr 12/23/22 05:45 12/23/22 06:39 Sodium Chloride 0.9% IV 12/24/22 05:44 30 mls/hr .Q24H ROMEO Administration PFSH Anesthesia Medical History Atrial fibrillation Cardiomyopathy Chronic systolic heart failure FH: mitral valve repair Glaucoma Hypertension Pacemaker Renal artery aneurysm Warfarin anticoagulation Surgical History Aortic valve replaced H/O bilateral inguinal hernia repair (05/26/22) History of appendectomy History of eye surgery History of tonsillectomy Hx of cataract surgery Family History Grandfather CAD (coronary artery disease) Family/Other CAD (coronary artery disease) Denies family history of Diabetes Clotting disorder Dementia Chronic kidney disease (CKD) Suicide Anesthesia complication Bleeding disorder Lung disease Cancer Stroke Social History Smoking and tobacco status: never smoked Alcohol intake: current Alcohol intake frequency: holidays/special occasions only Data Anesthesia Urine 12/23/22 Range/Units 05:55 Urine Color Yellow (Yellow) Urine Appearance Clear (CLEAR) Urine pH 5 (5-7) Ur Specific [place] 1.020 (1.005-1.030) Urine Protein Neg (Negative) Urine Glucose (UA) Norm (Normal) Urine Ketones Negative (Negative) Urine Nitrate Negative (Negative) Urine Bilirubin Neg (Negative) Ur Leukocyte Esterase Trace H (Negative) Cardiac Studies: Echocardiogram 04/28/22 Echocardiogram Ultrasound 10/29/20
[2022-12-23 06:47] LABS: Add Urine Culture? No; Bacteria Urine TRACE /hpf; Mucus Urine 1+ /hpf; RBC Urine 0-4 /hpf (0-2); Squamous Epithelial Cell Urine 0-4 /hpf (0-5); WBC Urine 0-4 /hpf (0-5)
[2022-12-23] MEDS: ceFAZolin 2,000 MG in sodium chloride 0.9% (plus) 50 ML 100 MG IV ×3 (07:02→22:25)
[2022-12-23] MEDS: lidocaine 2% INJ 20 mL INJECTION (07:32)
[2022-12-23] MEDS: ceFAZolin 1,000 mg SDV 1000 MG IRRIGATION (07:32)
--- NOTE | 2022-12-23 08:56 | P.OP_ITS ---
Operative Report Date of procedure: December 23, 2022 Pre-op diagnosis: Preop Diagnosis Pacemaker end of service;malfunctioning lead Post-op diagnosis: same Procedure done: [employer] single-lead pacing generator and right ventricular lead placement Specimens removed/disposition: Old [employer] pacing generator delivered to [employer] tax compliance representative Pathology: none sent Surgeon: Demarco Quigley Anesthesia: MAC and Local Complications: None post procedure chest x-ray pending Condition: stable Disposition: PACU Brief History: Mr. Miramontes is a 77-year-old gentleman status post aortic valve replacement and then subsequent mitral valve annuloplasty. He had a previous single-lead pacemaker implanted through the right subclavicular region with subsequent generator exchange. His second generator is now near end of service and he has high thresholds on his RV lead. Therefore, generator and lead replacement are indicated. Details and risk of the procedure were carefully and frankly discussed. Particular risk reviewed included the increase technical challenges related to right-sided pacemaker as well as 2 previous cardiac procedures as well as his pacing dependency. Increase bleeding complications from the procedure Were discussed particularly as he has been on subcutaneous Lovenox as a bridging anticoagulant prior to this procedure. Proper consents have been reviewed and signed. Procedure: Procedure: Mr. Miramontes was taken to the OR suite and placed in the supine position over a shoulder roll. He received conscious sedation with continuous anesthesia monitoring by. His entire chest was sterilely prepped and draped. 1% lidocaine was infiltrated in the right subclavicular region at the level of the previous surgical scar. Next, a #15 scalpel blade was utilized to incise the skin and then carefully utilizing cautery and Metzenbaum scissors dissection was continued down until the pseudocapsule of the pacemaker pocket could be reached and it was opened exposing the old pacemaker. This was carefully dissected free until the pacemaker and associated attacks lead could be delivered from the wound. Next, while in Trendelenburg position, utilizing modified seldinger technique, a guidewire was placed in the right subclavian vein. This was confirmed in position by fluoroscopy. A dilator and tear-away sheath was placed over the guidewire and advanced under fluoroscopy. Guidewire and dilator were removed. Next using a combination of curved and straight stylettes, the right ventricular lead was placed in position by fluoroscopy. The distal screw was extended. Interrogation was then performed confirming appropriate parameters. The tear-away sheath was then removed and the ventricular lead was sewn to the floor of the subcutaneous pocket. Pacing generator was brought into the field, and after confirmation of hemostasis in the subcutaneous pocket, the lead was connected to the generator with appropriate capture. The entire system was interrogated by fluoroscopy. Lead and generator were secured in the pocket after it had been modified for the new pacemaker. Sponge and needle count was correct. The wound was then closed in 2 layers of 3-0 Vicryl suture. Skin was reapproximated in a subcuticular manner with 4-0 Monocryl suture. A pressure dressing was applied. The right arm was placed in a sling. The patient had equal breath sounds bilaterally. He was then transferred to the PACU, where chest x-ray is currently pending. I did career placement services counselor with his at the completion of the procedure. Following are the specifics of this system: Right ventricular lead is 52 cm and model 5076. Serial number [id number] Ventricular lead had sensing of 4.25 mV with an impedance of 665 ohms. Threshold was 0.6 V [employer] generator: Model #[id number] Serial # [id number]
--- NOTE | 2022-12-23 09:05 | XR_ITS ---
WS: [id number] CHEST XRAY TECHNIQUE: Portable chest. CLINICAL INFORMATION: post pacemaker lead placement and generator change COMPARISON: None. FINDINGS: Cardiac pacer. Heart: Cardiomegaly. Sternotomy. Aortic calcification. Lungs: Lungs appear well aerated. Hand overlying the RIGHT lower lobe. Bones: Normal visualized bony structures. XR/XR chest 1V portable [id number] IMPRESSION: Status post cardiac pacer placement. No pneumothorax.
[2022-12-23] MEDS: FUROsemide 40 mg Tablet PO (11:42)
[2022-12-23] MEDS: finasteride 5 mg Tablet PO (11:42)
[2022-12-23] MEDS: pantoprazole DR 40 mg Tablet PO (11:42)
[2022-12-23] MEDS: carvedilol 6.25 mg Tablet PO (17:39)
[2022-12-24] VITALS: BP 113/69; PULSE 70; RESP 17; TEMP 36.8; O2SAT 95
[2022-12-24] MEDS: HYDROcodone-acetaminophen 5-325 mg Tablet 1 TAB PO (01:41)
[2022-12-24 04:00] VITALS: BP 107/62; PULSE 71; RESP 17; TEMP 36.8; O2SAT 96
[2022-12-24 06:00] VITALS: PULSE 71
--- NOTE | 2022-12-24 06:29 | P.DS_ITS ---
Discharge Providers Date of Admission: 12/23/22 09:37 Date of Discharge: December 24, 2022 Attending Provider at Admission: Demarco Quigley MD Attending Provider at Discharge: Demarco Quigley MD Primary Care Provider: Tara Encinas MD Reason for Visit Reason for Visit: Brief History: Mr. Miramontes is a 77-year-old gentleman with a current single-lead pacemaker now at end of service as well as a malfunctioning right ventricular lead. He was referred to our service by Dr. Holbrook for system change. He had cardiac surgery x2 to include aortic valve surgery and then mitral valve annuloplasty several years later. Details of risk of surgery were carefully and frankly discussed. He wished to proceed. Hospital Course Hospital Course Mr. Miramontes was electively admitted on December 23 and underwent replacement of his single-lead pacing system from a right subclavicular position where the original system had been placed. Postoperatively, he convalesced on the medical/surgical paredes. He is remained hemodynamically stable. He has full capture from his pacing system and is pacer dependent. Incision site this morning is clean and dry. There is no substantial swelling or evidence for fluid collection. He is afebrile. He is received postoperative prophylactic antibiotics. He had minimal incisional discomfort. He will be discharged to home today. He will resume his Lovenox dosing today as well as his Coumadin on his routine schedule. He will continue Lovenox through midday tomorrow. He will be scheduled follow- up in the [facility] pacemaker clinic in 1 week. He will receive prophylactic oral antibiotics for 3 days as well. Discharge instructions have been carefully reviewed with him. All questions answered. At the time of discharge, he is in stable condition. Physical Exam Chest: COMMONS NORMALS: normal inspection of the chest and normal palpation of entire chest wall OTHER: Right subclavicular incision line is clean, dry, and intact. There is no evidence for pacemaker pocket fluid collection or swelling. No erythema or evidence for drainage. Resp: COMMON NORMALS: normal respiratory effort, No use of accessory muscles and clear to auscultation bilaterally AUSCULTATION: clear to auscultation bilaterally Cardio: COMMON NORMALS: regular rate, regular rhythm and S1 normal heart sound present RATE: regular rate RHYTHM: regular rhythm HEART SOUNDS: S1 normal heart sound present Extremity: COMMON NORMALS: no clubbing, cyanosis or edema Discharge Data Studies Completed and Pending Completed Studies During Hospitalization Category Date Time Status XR chest 1V portable [id number] Routine Exams 12/23/22 09:05 Completed Radiology Impressions C-Arm Fluoroscopy 12/23/22 05:43 IMPRESSION: Images obtained for intraoperative purposes. Chest X-Ray 12/23/22 09:05 IMPRESSION: Status post cardiac pacer placement. No pneumothorax. Laboratory Results Urine Color Yellow (Yellow) 12/23/22 05:55 Urine Appearance Clear (CLEAR) 12/23/22 05:55 Urine pH 5 (5-7) 12/23/22 05:55 Ur Specific [place] 1.020 (1.005-1.030) 12/23/22 05:55 Urine Protein Neg (Negative) 12/23/22 05:55 Urine Glucose (UA) Norm (Normal) 12/23/22 05:55 Urine Ketones Negative (Negative) 12/23/22 05:55 Urine Blood 2+ (Negative) H 12/23/22 05:55 Urine Nitrate Negative (Negative) 12/23/22 05:55 Urine Bilirubin Neg (Negative) 12/23/22 05:55 Urine Urobilinogen Norm mg/dL (Negative) 12/23/22 05:55 Ur Leukocyte Esterase Trace (Negative) H 12/23/22 05:55 Urine RBC 0-4 /hpf (0-2) H 12/23/22 05:55 Urine WBC 0-4 /hpf (0-5) H 12/23/22 05:55 Ur Squamous Epith Cells 0-4 /hpf (0-5) H 12/23/22 05:55 Amorphous Sediment Not Reportable 12/23/22 05:55 Urine Bacteria Trace /hpf (NONE) 12/23/22 05:55 Urine Mucus 1+ /hpf 12/23/22 05:55 Blood Type O Positive 12/23/22 06:25 Rho(D) Type Positive 12/23/22 06:25 Antibody Screen Negative 12/23/22 06:25 Procedures Performed Single-lead pacing generator and lead replacement on December 23, 2022 Vitals Last Vital Signs Temp 98.3 F 12/24/22 04:00 Pulse 71 12/24/22 04:00 Resp 17 12/24/22 04:00 BP 107/62 12/24/22 04:00 Pulse Ox 96 12/24/22 04:00 O2 Del Method 12/24/22 04:00 Discharge Plan Discharge Patient Disposition: Home Condition: Stable Prescriptions: New hydrocodone-acetaminophen 5-325 mg Tablet 1 tab PO Q6H PRN (Reason: Moderate Pain) Qty: 16 0RF sulfamethoxazole-trimethoprim [Bactrim DS] 800-160 mg tablet 1 tab PO BID Qty: 6 0RF Continued finasteride 5 mg tablet 5 mg PO DAILY chlorpheniramine maleate 4 mg tablet 4 mg PO DAILY PRN (Reason: allergies) timolol 0.5 % drops 1 drop ophthalmic (eye) DAILY cholecalciferol (vitamin D3) 2,000 unit tablet 1,000 unit PO DAILY albuterol sulfate [Ventolin HFA] 90 mcg/actuation HFA aerosol inhaler 1 inh INHALATION QID fluticasone propion-salmeterol [Advair Diskus] 250-50 mcg/dose blister with device 1 inh INHALATION BID Alphagan P 0.1 % drops 1 drop ophthalmic (eye) TID latanoprost 0.005 % drops 1 drop ophthalmic (eye) DAILY dorzolamide (PF) 2 % drops 1 drop ophthalmic (eye) TID simvastatin 20 mg tablet 20 mg PO DAILY sildenafil 50 mg tablet 50 mg PO DAILY PRN (Reason: Sexual Activity) Rx Instructions: administer 30 minutes to 4 hours before activity furosemide 40 mg tablet 40 mg PO DAILY Qty: 90 3RF Entresto 97-103 mg tablet 1 tab PO BID 90 Days Qty: 180 3RF carvedilol 6.25 mg tablet 6.25 mg PO BID Qty: 180 3RF Rx Instructions: must administer with a meal/food enoxaparin [Lovenox] 100 mg/mL syringe 90 mg SUBCUT Q12H Label Comments: Pt received inj from [facility], start 1st dose 12/14 pm, 2nd dose 12/15am, 3rd dose 12/15pm, 4th dose 12/16 am warfarin 1 mg Tablet 5 mg PO DAILY Rx Instructions: Thursday/ warfarin 1 mg Tablet 7 mg PO DAILY Rx Instructions: Thursday/Thursday/Thursday/Thursday/Thursday Discharge Orders: Discharge Order (Routine); Ordered 12/24/22 Ordered By: Demarco Quigley Referrals: [facility] [Provider Group] - 1 week (Pacemaker Clinic) Discharge Diet: Usual diet Discharge Activity: Limit activity as instructed Patient Instructions: Opioid Safety Activity Restrictions/Additional Instructions: Resume Lovenox injection twice today and another dose again in the morning Resume Coumadin on routine schedule with first dose after arrival home today May remove bandage in 2 days May begin daily showers in 2 days with bandage. May reapply bandage after showers and drying incision thoroughly to prevent irritation from clothing No swimming or tub baths x2 weeks No heavy lifting with right arm x2 weeks Do not raise right hand above eye level for 1 week Report any redness, swelling, drainage, fever, or increased pain. Take antibiotics as prescribed twice daily for the next 3 days Discharge Attestations Time Spent in Discharge Care*: less than 30 min Specific Discharge Activities: educating patient, documenting/other paperwork and evaluating patient/reviewing data Status at Discharge: Cognitive status at discharge: cognitively intact , Behavioral status at discharge: cooperative , Functional status at discharge: independent ambulation , Overall status at discharge: patient is back to baseline Quality Metrics Clinical Quality Measures [ No reported AMI, CVA or VTE this stay] Coding Level of Care Code Acute Code for Garret Riojas
[2022-12-24] MEDS: ceFAZolin 2,000 MG in sodium chloride 0.9% (plus) 50 ML 100 MG IV (06:36)
[2022-12-24 08:00] VITALS: BP 116/55; PULSE 72; RESP 18; TEMP 36.4; O2SAT 96
--- NOTE | 2022-12-24 08:34 | PC.SOCIAL ---
[facility]
[2022-12-24 11:01] VITALS: BP 116/55; PULSE 72; RESP 18; TEMP 36.4; O2SAT 96
== END 2022-12-24 11:02 | disposition home or self-care (01) ==
LOC: MEDSURG 09:37
PROVIDERS: Admitting Provider Thoracic Surgery (Cardiothoracic Vascular Surgery); PCP Family Medicine; Visit Provider Thoracic Surgery (Cardiothoracic Vascular Surgery)
PROC: 0JPT0PZ Removal of Cardiac Rhythm Related Device from Trunk Subcutaneous Tissue and Fascia, Open Approach (ICD-10-PCS; CPT 33207; principal; 2022-12-23 07:00)
DX: Z45.010 Encounter for checking and testing of cardiac pacemaker pulse generator [battery] (principal); T82.110A Breakdown (mechanical) of cardiac electrode, initial encounter; Z95.2 Presence of prosthetic heart valve; I48.91 Unspecified atrial fibrillation; I11.0 Hypertensive heart disease with heart failure; I50.22 Chronic systolic (congestive) heart failure; Y71.8 Miscellaneous cardiovascular devices associated with adverse incidents, not elsewhere classified
CPT/HCPCS: 33207; 33233; 33234; 36415; 71045; 76000; 81001; 86850; 86900; C1779; C1786; G0378; J0690; J2370; J2704; J3010; J3535; J7030

== ENCOUNTER → 2023-01-07 09:20 | Outpatient (BNVA) | payer OTHER, SELFPAY | PROVIDERS: PCP Family Medicine; Visit Provider Nurse Practitioner Family | DX: Z95.0 Presence of cardiac pacemaker (principal) | CPT/HCPCS: 93288; 99024; 99214 ==

== ENCOUNTER → 2023-06-15 10:50 | Outpatient (BNVA) | payer OTHER, SELFPAY | PROVIDERS: PCP Family Medicine; Visit Provider Nurse Practitioner Family | DX: I11.0 Hypertensive heart disease with heart failure (principal); I50.22 Chronic systolic (congestive) heart failure; Z95.0 Presence of cardiac pacemaker; I48.0 Paroxysmal atrial fibrillation; Z79.01 Long term (current) use of anticoagulants | CPT/HCPCS: 99214 ==

== ENCOUNTER → 2023-08-05 11:41 | Outpatient (BNVA) | payer OTHER, SELFPAY | PROVIDERS: PCP Family Medicine; Visit Provider Internal Medicine | DX: M81.0 Age-related osteoporosis without current pathological fracture (principal); R25.2 Cramp and spasm; E55.9 Vitamin D deficiency, unspecified | CPT/HCPCS: 36415; 80053; 82306; 99214 ==

== ENCOUNTER → 2023-09-23 16:46 | Outpatient (BNVA) | payer OTHER, SELFPAY | PROVIDERS: PCP Family Medicine; Visit Provider Internal Medicine Cardiovascular Disease | DX: Z45.010 Encounter for checking and testing of cardiac pacemaker pulse generator [battery] (principal) | CPT/HCPCS: 93296 ==

== ENCOUNTER → 2023-12-17 11:21 | Outpatient (BNVA) | payer OTHER, SELFPAY | PROVIDERS: PCP Family Medicine; Visit Provider Internal Medicine Cardiovascular Disease | DX: R06.02 Shortness of breath (principal) | CPT/HCPCS: 36415; 80048; 83880; 99214 ==

== ENCOUNTER → 2024-06-16 10:57 | Outpatient (BNVA) | payer OTHER, SELFPAY | PROVIDERS: PCP Family Medicine; Visit Provider Nurse Practitioner Family | DX: I48.0 Paroxysmal atrial fibrillation (principal); I11.0 Hypertensive heart disease with heart failure; I50.22 Chronic systolic (congestive) heart failure; Z95.0 Presence of cardiac pacemaker | CPT/HCPCS: 99214 ==

== ENCOUNTER → 2024-09-19 10:00 | Outpatient (BNVA) | payer OTHER, SELFPAY | PROVIDERS: PCP Family Medicine; Visit Provider Podiatrist Foot & Ankle Surgery | DX: L85.3 Xerosis cutis; M20.41 Other hammer toe(s) (acquired), right foot; M20.42 Other hammer toe(s) (acquired), left foot; M21.611 Bunion of right foot; M21.612 Bunion of left foot | CPT/HCPCS: 99203 ==

== ENCOUNTER → 2025-01-11 10:55 | Outpatient (BNVA) | payer OTHER, SELFPAY | PROVIDERS: PCP Family Medicine; Visit Provider Internal Medicine Cardiovascular Disease | DX: I50.22 Chronic systolic (congestive) heart failure (principal); I10 Essential (primary) hypertension; I48.0 Paroxysmal atrial fibrillation; I42.0 Dilated cardiomyopathy; Z95.2 Presence of prosthetic heart valve; Z95.0 Presence of cardiac pacemaker; Z98.890 Other specified postprocedural states | CPT/HCPCS: 99214 ==

== ENCOUNTER → 2025-06-07 11:56 | Outpatient (BNVA) | payer OTHER, SELFPAY | PROVIDERS: PCP Family Medicine; Visit Provider Internal Medicine Cardiovascular Disease | DX: Z45.018 Encounter for adjustment and management of other part of cardiac pacemaker (principal) | CPT/HCPCS: 93296 ==

== ENCOUNTER → 2025-09-04 09:32 | Outpatient (BNVA) | payer OTHER, SELFPAY | PROVIDERS: PCP Family Medicine; Visit Provider Nurse Practitioner Family | DX: I48.0 Paroxysmal atrial fibrillation (principal); I11.0 Hypertensive heart disease with heart failure; I50.22 Chronic systolic (congestive) heart failure; Z95.2 Presence of prosthetic heart valve; Z95.0 Presence of cardiac pacemaker; E53.8 Deficiency of other specified B group vitamins; Z79.01 Long term (current) use of anticoagulants | CPT/HCPCS: 17000; 99204; 99213 ==

== ENCOUNTER → 2025-09-21 10:05 | Outpatient (BNVA) | payer OTHER, SELFPAY | PROVIDERS: PCP Family Medicine; Visit Provider Podiatrist Foot & Ankle Surgery | DX: L85.3 Xerosis cutis (principal); M20.41 Other hammer toe(s) (acquired), right foot; M20.42 Other hammer toe(s) (acquired), left foot; M21.611 Bunion of right foot; M21.612 Bunion of left foot | CPT/HCPCS: 99213 ==